=== PATIENT | female | born 1965 | race Caucasian/White ===

== ENCOUNTER 2018-09-25 07:12 | Day surgery (SDC) | payer OTHER ==
[~2018-09-25 07:12] MED LIST: CEFAZOLIN 2 GM/50 ML (PMX) 50 ML IVPB
[2018-09-25] MEDS: ACETAMINOPHEN 500 MG TAB PO (08:52)
[2018-09-25] MEDS: SOD CHLORIDE 0.9% 1,000 ML IV (08:54)
[2018-09-25 09:13] LABS: ADD MAN DIFF? NO
[2018-09-25 09:16] LABS: WHITE BLOOD COUNT 6.3 10^3/ul (4.8-10.8)
[2018-09-25 09:16] LABS: BASOPHILS % 0.3 % (0.0-2.0); EOSINOPHILS # 0.1 10^3/ul (0.0-0.5); EOSINOPHILS % 0.8 % (0.0-7.0); HEMATOCRIT 40.7 % (37.0-47.0); HEMOGLOBIN 13.6 g/dl (12.0-16.0); LYMPHOCYTES # 1.2 10^3/ul (0.8-2.9); LYMPHOCYTES % 18.7 % (15.0-51.0); MEAN CORPUSCULAR HEMOGLOBIN 29.4 pg (29.0-33.0); MEAN CORPUSCULAR HGB CONC 33.4 g/dl (32.0-37.0); MEAN CORPUSCULAR VOLUME 87.9 fl (82.0-101.0); MEAN PLATELET VOLUME 8.9 fl (7.4-10.4); MONOCYTE # 0.5 10^3/ul (0.3-0.9); MONOCYTES % 7.3 % (0.0-11.0); NEUTROPHIL # 4.6 10^3/ul (1.6-7.5); NEUTROPHILS % 72.7 % (39.0-77.0); PLATELET COUNT 328 10^3/UL (140-415); RED BLOOD COUNT 4.63 10^6/ul (4.20-5.40); RED CELL DISTRIBUTION WIDTH 13.2 % (11.5-14.5)
[2018-09-25 09:33] LABS: ALANINE AMINOTRANSFERASE 37 IU/L (13-69); ALBUMIN 4.3 g/dl (3.3-4.9); ALBUMIN/GLOBULIN RATIO 1.26; ALKALINE PHOSPHATASE 78 IU/L (42-121); ANION GAP 9 (5-13); ASPARTATE AMINO TRANSFERASE 25 IU/L (15-46); BILIRUBIN,INDIRECT 0.7 mg/dl (0-1.1); BILIRUBIN,TOTAL 0.7 mg/dl (0.2-1.3); BLOOD UREA NITROGEN 12 mg/dl (7-20); CALCIUM 10.2 mg/dl (8.4-10.2); CARBON DIOXIDE 25 mmol/L (21-31); CHLORIDE 108 mmol/L (97-110); CREATININE 0.69 mg/dl (0.44-1.00); Estimated GFR > 60 mL/min (>60); GLUCOSE 110 mg/dl (70-220); POTASSIUM 3.8 mmol/L (3.5-5.1); SODIUM 142 mmol/L (135-144); TOTAL PROTEIN 7.7 g/dl (6.1-8.1)
[2018-09-25 09:36] LABS: INR 0.94; PROTIME 12.7 Sec (11.9-14.9)
[2018-09-25 09:37] LABS: PARTIAL THROMBOPLASTIN TIME 31.5 Sec (23.0-35.0)
[2018-09-25] MEDS ORDERED: ALBUTEROL 0.083% (NEB) 2.5 MG/3 ML AMP HHN (10:30)
[2018-09-25] MEDS ORDERED: HYDROmorphONE 1 MG/5 ML IV SYRINGE IV ×3 (10:30)
[2018-09-25] MEDS ORDERED: OXYCODONE/ACETAMINOPHEN (5/325) TAB PO ×2 (10:30)
[2018-09-25] MEDS ORDERED: morphine (1 MG/ML) 10ML SYRINGE IV ×2 (10:30)
[2018-09-25] MEDS ORDERED: MEPERIDINE 25 MG INJ IV (10:30)
[2018-09-25] MEDS ORDERED: ONDANSETRON 4 MG INJ IV (10:30)
[2018-09-25] MEDS ORDERED: FENTAnyl 50 MCG/ML VIAL IV ×2 (10:30)
[2018-09-25] MEDS ORDERED: DIPHENHYDRAMINE 50 MG INJ IV (10:30)
[2018-09-25] MEDS ORDERED: LABETALOL HCL 20MG INJ IV (10:30)
[2018-09-25] MEDS ORDERED: LIDOCAINE 2% (SDV) 5 ML INJ (10:32)
[2018-09-25] MEDS ORDERED: PROPOFOL 40 ML (10:32)
[2018-09-25] MEDS ORDERED: CEFAZOLIN 1 GM INJ (10:32)
[2018-09-25] MEDS ORDERED: ONDANSETRON 4 MG INJ (10:33)
[2018-09-25] MEDS ORDERED: FENTAnyl 50 MCG/ML VIAL (10:33)
[2018-09-25] MEDS ORDERED: MIDAZOLAM 1 MG/ML 2 ML INJ (10:33)
[2018-09-25] MEDS ORDERED: FAMOTIDINE 20 MG INJ (10:33)
== END 2018-09-25 12:35 | disposition home or self-care (01) ==
LOC: SDS 07:12
DX: Z30.46 Encounter for surveillance of implantable subdermal contraceptive (principal); I10 Essential (primary) hypertension
CPT/HCPCS: 11982; 71045; 73060; 80053; 84703; 85025; 85610; 85730; 88300; 93005